=== PATIENT | female | born 1975 | race Caucasian/White ===

== ENCOUNTER 2018-03-20 10:01 | Outpatient (CLI) | payer OTHER | END 2018-03-20 10:02 | disposition home or self-care (01) | LOC: BICMAMMO 10:01 | PROVIDERS: ATTEND Obstetrics & Gynecology | DX: Z12.31 Encounter for screening mammogram for malignant neoplasm of breast (principal); Z80.3 Family history of malignant neoplasm of breast | CPT/HCPCS: 77063; 77067 ==

== ENCOUNTER 2019-05-19 10:06 | Outpatient (CLI) | payer OTHER ==
--- NOTE | 2019-05-19 10:53 | MMO ---
Left Breast MAMMO Unilat Diag [facility] LT+JAIME. CLINICAL HISTORY: Patient is 44 years old and is seen for diagnostic exam. The patient has no personal history of cancer. VIEWS: The views performed were: left craniocaudal spot compression with tomosynthesis and left mediolateral with tomosynthesis. FILMS COMPARED: The present examination has been compared to prior imaging studies performed at [facility] on 05/10/2019, and at [facility] on 02/27/2017, 03/20/2018 and 05/19/2019. This study has been interpreted with the assistance of computer-aided detection. MAMMOGRAM FINDINGS: The breast is heterogeneously dense, which could obscure a lesion on mammography. There is a focal asymmetry seen in the posterior central region of the left breast. 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 IMPRESSION: FOCAL ASYMMETRY IN THE LEFT BREAST IS PROBABLY BENIGN. SIX MONTH FOLLOW UP ULTRASOUND. THE RESULTS OF THIS EXAM WERE SENT TO THE PATIENT. ACR BI-RADS Category 3 - Probably benign finding - short interval follow-up suggested. [facility] will notify the patient of the need for additional imaging services. MAMMOGRAPHY NOTE: 1. A negative mammogram report should not delay a biopsy if a dominant of clinically suspicious mass is present. 2. Approximately 10% to 15% of breast cancers are not detected by mammography. 3. Adenosis and dense breasts may obscure an underlying neoplasm. Reported by: NICANOR JACKSON MD Electonically Signed: [id number]
--- NOTE | 2019-05-19 10:58 | ULT ---
LIMITED LEFT BREAST ULTRASOUND: DATE: 05/19/2019. PROVIDED CLINICAL HISTORY: Abnormal mammogram. FINDINGS: Limited sonographic interrogation was performed of the left breast in the region of mammographic conc dae. There is an oval, wider than tall, smoothly marginated mass without posterior shadowing at the 1:30 position of the left breast. This measures approximately 1.2 cm. IMPRESSION: BIRADS category 3 - probably benign findings. 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 Six-month followup left breast ultrasound is recommended. POS: OFF
== END 2019-05-19 10:07 | disposition home or self-care (01) ==
LOC: BICMAMMO 10:06
PROVIDERS: ATTEND Obstetrics & Gynecology
DX: R92.2 Inconclusive mammogram (principal); N64.89 Other specified disorders of breast
CPT/HCPCS: G0279